=== PATIENT | female | born 1930 | race Caucasian/White ===

== ENCOUNTER 2017-03-26 11:27 | Emergency (ER) | payer MEDICARE, OTHER ==
[~2017-03-26] VITALS: Ht 165.1 cm; Wt 73.5 kg
[~2017-03-26 11:27] MED LIST: ASPIRIN EC81 MG PO; BISOPROLOL FUMAR5 MG PO; CALCIUM + VITA1 EACH PO; CHLORDIAZEPOXI1 EACH PO; GABAPENTIN100 MG PO; LEVOTHYROXINE112 MCG PO; METOPROLOL TART25 MG PO; PRILOSEC40 MG PO; SPIRONOLACTONE25 MG PO; TORSEMIDE10 MG PO; VITAMIN B-12100 MCG PO; VYTORIN 10-401 EACH PO; XARELTO10 MG PO
--- NOTE | 2017-03-26 12:22 | Diagnostic Imaging Report ---
PROCEDURE: A single AP view of the chest. COMPARISON: Chest radiograph 04/30/2015 INDICATIONS: FALL, WEAKNESS FINDINGS: Lines/tubes: Left chest wall AICD with leads overlying the right atrium and right ventricle. Lungs: The lungs are well inflated. Mild bibasilar atelectasis. There is no evidence of pneumonia or pulmonary edema. Pleura: There is no pleural effusion or pneumothorax. Heart and mediastinum: Tortuous aorta. Aortic calcifications. Otherwise, the heart and the mediastinum are unremarkable. Bones: No acute bony abnormality. Median sternotomy wires. IMPRESSION: No acute cardiopulmonary disease. Dictated by: Adarsh Zuniga M.D. on 03/26/2017 at 12:31 Electronically approved by: Adarsh Zuniga M.D. on 03/26/2017 at 12:31
--- NOTE | 2017-03-26 12:47 | Diagnostic Imaging Report ---
History: Trauma, fall, rule out bleed Comparison studies: Multiple prior head CTs, most recent of 04/22/2014. Technique: Axial images were obtained from the brain and cervical spine. Coronal and sagittal images reconstructed from the axial data. Intravenous contrast: None Findings: Head CT: Scalp: Small left parietal-occipital hematoma. Incidental small left frontal scalp lipoma. Bones: No fractures, blastic or lytic lesions. Previous bilateral frontal and left parietal kin holes. Extra-axial spaces: No masses. No fluid collections. Brain volume: Generalized volume loss with greater/moderate disproportionate volume loss in the bilateral frontal lobes. Ventricles: Moderate compensatory dilatation of the lateral ventricles. Normal size fourth ventricle. No hydrocephalus. Parenchyma: No mass, acute hemorrhage or acute cortical vascular insults. A few scattered and mildly confluent-periventricular hypodensities in the supratentorial white matter are nonspecific but most compatible with chronic small vessel ischemic changes. Sellar/suprasellar region: No abnormalities. Craniocervical junction: The foramen magnum is patent. No Chiari one malformation. Cervical spine CT: Fractures: None. Soft tissues: No gross abnormalities. Atlantoaxial articulation: Intact. Alignment: Mild cervical kyphosis centered at C4-C5 and minimal anterolisthesis of C3 on C4, C4 on C5 and C7 on T1 are most likely degenerative in etiology. Mild cervical curvature convex to the left. Cervicomedullary junction: No abnormalities. The foramen magnum is patent. Vertebrae: No infection or neoplasm. Degenerative changes: Multilevel disc degeneration (mild from C2 to C4, moderate at C4-C5, severe at C5-C6 and at C6-C7 and mild at C7-T1). Multilevel disc calcification. Mild canal stenosis at C5-C6 and at C6-C7 due to disc osteophyte complexes. Multilevel advanced facet arthrosis, worse/severe on the right from C2 to C5. Multilevel foraminal stenosis due to uncovertebral and facet arthrosis (severe right and mild left at C3-C4, moderate right and mild left at C4-C5, severe left and moderate right at C5-C6 and moderate bilaterally at C6-C7). Incidental findings: Scattered calcified cervical atherosclerosis including within the carotid bulbs. Calcified atherosclerosis and in the intradural intradural vertebral arteries. Bilateral lens replacements related to previous cataract surgery. Partially imaged median sternotomy wire and implanted left intracardiac device. IMPRESSION: Head CT: 1. Left parieto-occipital scalp hematoma without underlying fracture. 2. No acute intracranial abnormalities. Specifically, no acute hemorrhage. 3. No changes from the previous head CT of 04/22/2014. 4. Generalized volume loss with a bifrontal predominance. 5. Mild chronic microvascular ischemic changes. Cervical spine CT: 1. No cervical spine fracture or acute subluxations. 2. Multilevel degenerative changes as described. 3. Cannot exclude ligament, spinal cord and or vascular abnormalities on the basis of this examination. Signed by: Dr. Marlon Campos M.D. on 03/26/2017 12:44 PM
[2017-03-26 12:54] LABS: BASOPHILS # (AUTO) 0.1 (0.0-0.1); BASOPHILS % 0.9 % (0.0-1.0); EOSINOPHILS # (AUTO) 0.1 (0.0-0.4); EOSINOPHILS % 2.3 % (0.0-6.0); HEMATOCRIT 40.2 % (34.2-44.1); HEMOGLOBIN 12.8 g/dL (12.0-16.0); LYMPHOCYTES # (AUTO) 1.3 (1.0-3.2); LYMPHOCYTES % 23.7 % (18.0-39.1); MEAN CORPUSCULAR HEMOGLOBIN 28.8 pg (28-32); MEAN CORPUSCULAR HGB CONC 31.8 g/dL (31-35); MEAN CORPUSCULAR VOLUME 90.5 fL (81-99); MONOCYTES # (AUTO) 0.5 (0.2-0.8); MONOCYTES % 8.4 % (4.4-11.3); NEUTROPHILS # (AUTO) 3.6 (2.1-6.9); NEUTROPHILS % 64.5 % (38.7-80.0); PLATELET COUNT 164 x10e3/uL (140-360); RED BLOOD COUNT 4.44 x10e6/uL (3.6-5.1); RED CELL DISTRIBUTION WIDTH 13.9 % (11.7-14.4)
[2017-03-26 13:07] LABS: INR 1.8; PROTHROMBIN TIME 21.8 seconds (11.9-14.5)
[2017-03-26 13:08] LABS: PARTIAL THROMBOPLASTIN TIME 39.3 seconds (23.8-35.5)
[2017-03-26 13:17] LABS: ALBUMIN 3.7 g/dL (3.5-5.0); ANION GAP 11.4 mmol/L (8-16); CALCIUM 8.7 mg/dL (8.4-10.2); CREATININE, SERUM 1.04 mg/dL (0.57-1.11); POTASSIUM 4.4 mmol/L (3.5-5.1)
[2017-03-26 13:23] LABS: CREATINE KINASE MB 2.8 ng/mL (0.00-5.00); TROPONIN I 0.215 ng/mL (0-0.300)
[2017-03-26 14:02] LABS: BILIRUBIN,URINE NEGATIVE (NEGATIVE); KETONES,URINE NEGATIVE (NEGATIVE); LEUKOCYTE ESTERASE ,URINE 2+ (NEGATIVE); NITRITE,URINE NEGATIVE (NEGATIVE); PROTEIN,URINE DIPSTICK NEGATIVE (NEGATIVE); URINE UROBILINOGEN 0.2 mg/dL (0.2 - 1)
[2017-03-26 14:13] LABS: CLARITY,URINE SL CLOUDY (CLEAR); COLOR,URINE YELLOW (YELLOW)
[2017-03-26 14:37] LABS: BACTERIA,URINE RARE /HPF; EPITHELIAL CELLS,URINE FEW /LPF; WBC,URINE (MAN) 0-5 /HPF (0-5)
[2017-03-26 15:32] VITALS: BP 134/79
== END 2017-03-26 15:33 | disposition home or self-care (01) ==
LOC: ER 11:27
DX: S01.01XA Laceration without foreign body of scalp, initial encounter (principal); W18.12XA Fall from or off toilet with subsequent striking against object, initial encounter; Y93.89 Activity, other specified; Y92.002 Bathroom of unspecified non-institutional (private) residence as the place of occurrence of the external cause
CPT/HCPCS: 36415; 70450; 71045; 72125; 80053; 81001; 82550; 82553; 84484; 85025; 85610; 85730; 87086; 87186; 87400; 93005; 99283

== ENCOUNTER 2017-05-22 11:42 | Inpatient (IN) | payer MEDICARE ==
[~2017-05-22] VITALS: Ht 165.1 cm; Wt 82.8 kg
--- OUTSIDE RECORDS SUMMARY | 2017-05-22 11:45 | XMS REPORT ---
Author Author [facility] Address Unknown Phone Unavailable Care Team Providers Care Conference Planning Manager Name Role Phone HIRAL LONGORIA Unavailable Unavailable Problems This patient has no known problems. Allergies, Adverse Reactions, Alerts This patient has no known allergies or adverse reactions. Medications This patient has no known medications. Results Test Description Test Time Test Comments Text Results Atomic Results Result Comments CHEST SINGLE (PORTABLE) [address] [place], [place] [address] Patient Name: MEERA BOSWELL MR #: [id number] : 1930 Age/Sex: 86/F Req #: [id number] Adm Physician: Ordered by: SILAS JAUREGUI HOTEL OPERATION MANAGER Report #: [id number] Location: ER Room/Bed: Procedure: [id number] DX/CHEST SINGLE (PORTABLE) Exam Date: 03/26/17 Exam Time: 1140 REPORT STATUS: Signed PROCEDURE: A single AP view of the chest. COMPARISON: Chest radiograph 04/30/2015 INDICATIONS: FALL, WEAKNESS FINDINGS: Lines/tubes: Left chest wall AICD with leads overlying the right atrium and right ventricle. Lungs: The lungs are well inflated. Mild bibasilar atelectasis. There is no evidence of pneumonia or pulmonary edema. Pleura: There is no pleural effusion or pneumothorax. Heart and mediastinum: Tortuous aorta. Aortic calcifications. Otherwise, the heart and the mediastinum are unremarkable. Bones: No acute bony abnormality. Median sternotomy wires. IMPRESSION: No acute cardiopulmonary disease. Dictated by: Adarsh Su M.D. on 03/26/2017 at 12:31 Electronically approved by: Adarsh Su M.D. on 03/26/2017 at 12:31 Dictated By: ADARSH SU MD 1231 Transcribed By : AALIYAH on 03/26/17 1231 COPY TO: SILAS JAUREGUI HOTEL OPERATION MANAGER CT CERVICAL SPINE WO [facility] [address] [place] [address] Patient Name: MEERA BOSWELL MR #: [id number] : 1930 Age/Sex: 86/F Req #: [id number] Adm Physician: Ordered by: SILAS JAUREGUI HOTEL OPERATION MANAGER Report #: [id number] Location: ER Room/Bed: Procedure: [id number] CT/CT CERVICAL SPINE WO Exam Date: 03/26/17 Exam Time: 1145 REPORT STATUS: Signed History: Trauma, fall, rule out bleed Comparison studies: Multiple prior head CTs, most recent of 04/22/2014. Technique: Axial images were obtained from the brain and cervical spine. Coronal and sagittal images reconstructed from the axial data. Intravenous contrast: None Findings: Head CT: Scalp: Small left parietal-occipital hematoma. Incidental small left frontal scalp lipoma. Bones: No fractures, blastic or lytic lesions. Previous bilateral frontal and left parietal kin holes. Extra-axial spaces: No masses. No fluid collections. Brain volume: Generalized volume loss with greater/ moderate disproportionate volume loss in the bilateral frontal lobes. Ventricles: Moderate compensatory dilatation of the lateral ventricles. Normal size fourth ventricle. No hydrocephalus. Parenchyma: No mass, acute hemorrhage or acute cortical vascular insults. A few scattered and mildly confluent-periventricular hypodensities in the supratentorial white matter are nonspecific but most compatible with chronic small vessel ischemic changes. Sellar/suprasellar region: No abnormalities. Craniocervical junction: The foramen magnum is patent. No Chiari one malformation. Cervical spine CT: Fractures: None. Soft tissues: No gross abnormalities. Atlantoaxial articulation: Intact. Alignment: Mild cervical kyphosis centered at C4-C5 and minimal anterolisthesis of C3 on C4, C4 on C5 and C7 on T1 are most likely degenerative in etiology. Mild cervical curvature convex to the left. Cervicomedullary junction: No abnormalities. The foramen magnum is patent. Vertebrae: No infection or neoplasm. Degenerative changes: Multilevel disc degeneration (mild from C2 to C4, moderate at C4-C5, severe at C5-C6 and at C6-C7 and mild at C7-T1). Multilevel disc calcification. Mild canal stenosis at C5-C6 and at C6-C7 due to disc osteophyte complexes. Multilevel advanced facet arthrosis, worse/ severe on the right from C2 to C5. Multilevel foraminal stenosis due to uncovertebral and facet arthrosis (severe right and mild left at C3-C4, moderate right and mild left at C4-C5, severe left and moderate right at C5- C6 and moderate bilaterally at C6-C7). Incidental findings: Scattered calcified cervical atherosclerosis including within the carotid bulbs. Calcified atherosclerosis and in the intradural intradural vertebral arteries. Bilateral lens replacements related to previous cataract surgery. Partially imaged median sternotomy wire and implanted left intracardiac device. IMPRESSION: Head CT: 1. Left parieto-occipital scalp hematoma without underlying fracture. 2. No acute intracranial abnormalities. Specifically, no acute hemorrhage. 3. No changes from the previous head CT of 04/22/2014. 4. Generalized volume loss with a bifrontal predominance. 5. Mild chronic microvascular ischemic changes. Cervical spine CT: 1. No cervical spine fracture or acute subluxations. 2. Multilevel degenerative changes as described. 3. Cannot exclude ligament, spinal cord and or vascular abnormalities on the basis of this examination. Signed by: Dr. Yang Campos M.D. on 03/26/2017 12:44 PM Dictated By: YANG CAMPOS MD 1244 Transcribed By: JOHNSON on 03/26/17 1244 COPY TO: SILAS JAUREGUI HOTEL OPERATION MANAGER CT BRAIN WO [place] [address] Patient Name: MEERA BOSWELL MR #: [id number] : 1930 Age/Sex: 86/F Req #: [id number] Adm Physician: Ordered by: SILAS JAUREGUI HOTEL OPERATION MANAGER Report #: [id number] Location: ER Room/Bed: Procedure: [id number] CT/CT BRAIN WO Exam Date: 03/26/17 Exam Time: 1145 REPORT STATUS: Signed History: Trauma, fall, rule out bleed Comparison studies: Multiple prior head CTs, most recent of 2014. Technique: Axial images were obtained from the brain and cervical spine. Coronal and sagittal images reconstructed from the axial data. Intravenous contrast: None Findings: Head CT: Scalp: Small left parietal-occipital hematoma. Incidental small left frontal scalp lipoma. Bones: No fractures, blastic or lytic lesions. Previous bilateral frontal and left parietal kin holes. Extra-axial spaces: No masses. No fluid collections. Brain volume: Generalized volume loss with greater/moderate disproportionate volume loss in the bilateral frontal lobes. Ventricles: Moderate compensatory dilatation of the lateral ventricles. Normal size fourth ventricle. No hydrocephalus. Parenchyma: No mass, acute hemorrhage or acute cortical vascular insults. A few scattered and mildly confluent-periventricular hypodensities in the supratentorial white matter are nonspecific but most compatible with chronic small vessel ischemic changes. Sellar/suprasellar region: No abnormalities. Craniocervical junction: The foramen magnum is patent. No Chiari one malformation. Cervical spine CT: Fractures: None. Soft tissues: No gross abnormalities. Atlantoaxial articulation: Intact. Alignment: Mild cervical kyphosis centered at C4-C5 and minimal anterolisthesis of C3 on C4, C4 on C5 and C7 on T1 are most likely degenerative in etiology. Mild cervical curvature convex to the left. Cervicomedullary junction: No abnormalities. The foramen magnum is patent. Vertebrae: No infection or neoplasm. Degenerative changes: Multilevel disc degeneration (mild from C2 to C4, moderate at C4-C5, severe at C5-C6 and at C6-C7 and mild at C7-T1). Multilevel disc calcification. Mild canal stenosis at C5-C6 and at C6-C7 due to disc osteophyte complexes. Multilevel advanced facet arthrosis, worse/ severe on the right from C2 to C5. Multilevel foraminal stenosis due to uncovertebral and facet arthrosis (severe right and mild left at C3-C4, moderate right and mild left at C4-C5, severe left and moderate right at C5- C6 and moderate bilaterally at C6-C7). Incidental findings: Scattered calcified cervical atherosclerosis including within the carotid bulbs. Calcified atherosclerosis and in the intradural intradural vertebral arteries. Bilateral lens replacements related to previous cataract surgery. Partially imaged median sternotomy wire and implanted left intracardiac device. IMPRESSION: Head CT: 1. Left parieto-occipital scalp hematoma without underlying fracture. 2. No acute intracranial abnormalities. Specifically, no acute hemorrhage. 3. No changes from the previous head CT of 04/22/2014. 4. Generalized volume loss with a bifrontal predominance. 5. Mild chronic microvascular ischemic changes. Cervical spine CT: 1. No cervical spine fracture or acute subluxations. 2. Multilevel degenerative changes as described. 3. Cannot exclude ligament, spinal cord and or vascular abnormalities on the basis of this examination. Signed by: Dr. Yang Campos M.D. on 03/26/2017 12:44 PM Dictated By: YANG CAMPOS MD 1244 Transcribed By: JOHNSON on 03/26/17 1244 COPY TO: SILAS JAUREGUI NP
--- OUTSIDE RECORDS SUMMARY | 2017-05-22 11:45 | XMS REPORT | Continuity of Care Document ---
Author Author [facility] Organization [facility] Address [address] [place] [address] Phone Unavailable Care Team Providers Care Vp Ancillary Name Role Phone DILCIA DOAN MD PCP Insurance Providers Guarantor Meera Boswell Address [address] [place] [address] [facility] Policy Number [id number] Subscriber's Name Meera Boswell Relationship 18 Self / Same As Patient Group Number [id number] Group Name RETIRED Effective Date 14 Payer Medicare A & B Policy Number [id number] Subscriber's Name Meera Boswell E Relationship 18 Self / Same As Patient Group Name RETIRED Effective Date 94 Advance Directives Directive Response Recorded Date/Time Does the patient have an advance directive? Yes 02/11/12 3:00pm If yes, is advance directive on file with [facility]? No 02/11/12 3:00pm If not on file with [facility] will patient provide a copy? Yes 02/11/12 3:00pm Do you have a Directive to Physician? No 03/26/17 12:49pm Do you have a Medical Power of Voting Machine Repairer? No 03/26/17 12:49pm Do you have an out of hospital Do Not Resuscitate Order? No 03/26/17 12:49pm Do you have any special needs we should be aware of? No 03/26/17 12:49pm Do you have a support person here with you today? Yes 03/26/17 12:49pm Did patient receive Notice of Privacy Practices? Yes 03/26/17 12:49pm Did patient receive patient rights and responsibilities? Yes 03/26/17 12:49pm Chief Complaint and Reason for Visit Chief Complaint Head/Face Trauma Reason for Visit Laceration [id number] Problems Medical Problem Onset Date Status Head injury Unknown Acute Laceration Unknown Acute Medications Current Home Medications Medication Dose Units Route Directions Days Qty Instructions Start Date Aspirin (Aspirin Ec) 81 Mg Tablet. 81 Mg Oral Daily Bisoprolol Fumarate 5 Mg Tablet 5 Mg Oral Daily Calcium Carbonate/Vitamin D3 (Calcium + Vitamin D Tablet) 1 Each Tablet 500 Mg Oral Daily Chlordiazepoxide/Clidinium Br (Chlordiazepoxide-Clidinium Cap) 1 Each Capsule Mg Oral Twice A Day Cyanocobalamin (Vitamin B-12) (Vitamin B-12) 100 Mcg Tablet 100 Mcg Oral Daily Ezetimibe/Simvastatin (Vytorin 10-40 Mg Tablet) 1 Each Tablet 10 - 40 Mg Oral Bedtime Gabapentin 100 Mg Capsule 100 Mg Oral Three Times A Day Levothyroxine Sodium 112 Mcg Tablet 112 Mcg Oral Daily Metoprolol Tartrate 25 Mg Tablet 12.5 Mg Oral Daily Omeprazole (Prilosec) 40 Mg Capsule. 40 Mg Oral Twice A Day Rivaroxaban (Xarelto) 10 Mg Tablet 10 Mg Oral Daily Spironolactone 25 Mg Tablet 25 Mg Oral Daily 60 Tab Torsemide 10 Mg Tablet 20 Mg Oral Daily Social History Social History Problem Response Recorded Date/Time Onset Date Status Hx Psychiatric Problems No 02/11/2012 3:00pm Not Applicable Not Applicable Hx Alcohol Use No 02/11/2012 3:00pm Not Applicable Not Applicable Hx Physical Abuse No 02/11/2012 3:00pm Not Applicable Not Applicable Smoking Status Start Date Stop Date Never Smoker Hospital Discharge Instructions No hospital discharge instruction information available. Plan of Care Discharge Date 03/26/17 3:33pm Disposition HOME, SELF-CARE Condition at Discharge Stable Instructions/Education Provided Concussion/Head Injury - Adult Scalp Laceration Forms Provided Work/School Excuse Prescriptions See Medication Section Referrals DILCIA DOAN MD Address: [address] [place] [address] BILL MAGALLON MD Address: [address] [place] [address] Additional Instructions/Education 1. follow up with your doctor in 1-2 days without fail 2. follow up with neurologist in 1-2 days without fail 3. tylenol and motrin as needed for pain 4. neosporin ointment to wound twice a day 5. return to ed as needed Functional Status No functional status information available. Allergies, Adverse Reactions, Alerts Allergen Type Severity Reaction Status Last Updated No Known Drug Allergies Allergy Unknown Active 10/24/08 Immunizations No immunization information available. Vital Signs Acute Vital Signs Vital Response Date/Time Temperature (Fahrenheit) 97.7 degrees F (97.6 - 99.5) 03/26/2017 3:32pm Pulse Pulse Rate (adult) 77 bpm (60 - 90) 03/26/2017 3:32pm Respiratory Rate 16 bpm (12 - 24) 03/26/2017 3:32pm Blood Pressure 134/79 mm Hg 03/26/2017 3:32pm Height 5 ft 5 in 03/26/2017 11:30am Weight 162 lb 03/26/2017 11:30am Body Mass Index 27.0 kg/m^2 03/26/2017 11:30am Results Laboratory Results Test Name Result Units Flags Reference Collection Date/Time Result Date/ Time Comments White Blood Count 5.58 x10e3/uL 4.8-10.8 03/26/2017 11:47am 03/26/2017 12:56pm Red Blood Count 4.44 x10e6/uL 3.6-5.1 03/26/2017 11:47am 03/26/2017 12: 56pm Hemoglobin 12.8 g/dL 12.0-16.0 03/26/2017 11:47am 03/26/2017 12:56pm Hematocrit 40.2 % 34.2-44.1 03/26/2017 11:47am 03/26/2017 12:56pm Mean Corpuscular Volume 90.5 fL 81-99 03/26/2017 11:4703/26/2017 12: 56pm Mean Corpuscular Hemoglobin 28.8 pg 28-32 03/26/2017 11:2017 12:56pm Mean Corpuscular Hemoglobin Concent 31.8 g/dL 31-35 03/26/2017 11:03/26/2017 12:56pm Red Cell Distribution Width 13.9 % 11.7-14.4 03/26/2017 11:2017 12:56pm Platelet Count 164 x10e3/uL 140-360 03/26/2017 11:03/26/2017 12: 56pm Neutrophils (%) (Auto) 64.5 % 38.7-80.0 03/26/2017 11:03/26/2017 12:56pm Lymphocytes (%) (Auto) 23.7 % 18.0-39.1 03/26/2017 11:03/26/2017 12:56pm Monocytes (%) (Auto) 8.4 % 4.4-11.3 03/26/2017 11:03/26/2017 12: 56pm Eosinophils (%) (Auto) 2.3 % 0.0-6.0 03/26/2017 11:03/26/2017 12: 56pm Basophils (%) (Auto) 0.9 % 0.0-1.0 03/26/2017 11:03/26/2017 12: 56pm IM GRANULOCYTES % 0.2 % 0.0-1.0 03/26/2017 11:03/26/2017 12:56pm Neutrophils # (Auto) 3.6 2.1-6.9 03/26/2017 11:03/26/2017 12: 56pm Lymphocytes # (Auto) 1.3 1.0-3.2 03/26/2017 11:03/26/2017 12: 56pm Monocytes # (Auto) 0.5 0.2-0.8 03/26/2017 11:03/26/2017 12:56pm Eosinophils # (Auto) 0.1 0.0-0.4 03/26/2017 11:4703/26/2017 12: 56pm Basophils # (Auto) 0.1 0.0-0.1 03/26/2017 11:47am 03/26/2017 12:56pm Absolute Immature Granulocyte (auto 0.01 x10e3/uL 0-0.1 03/26/2017 11: 47am 03/26/2017 12:56pm Prothrombin Time 21.8 seconds H 11.9-14.5 03/26/2017 11:47am 03/26/2017 1:27pm Prothromb Time International Ratio 1.80 03/26/2017 11:47am 2017 1:27pm Oral Anticoagulant Therapy INR Values: 1. Low Intensity Therapy 1.5 - 2.0 2. Moderate Intensity Therapy 2.0 - 3.0 3. High Intensity Therapy(1) 2.5 - 3.5 4. High Intensity Therapy(2) 3.0 - 4.0 5. Panic Value INR > 5.0 Activated Partial Thromboplast Time 39.3 seconds H 23.8-35.5 03/26/2017 11:47am 03/26/2017 1:27pm Urine Color YELLOW YELLOW 03/26/2017 12:40pm 03/26/2017 2:14pm Urine Clarity SL CLOUDY CLEAR 03/26/2017 12:40pm 03/26/2017 2:14pm Urine Specific [place] 1.015 1.010-1.025 03/26/2017 12:40pm 2017 2:14pm Urine pH 5 5 - 7 03/26/2017 12:40pm 03/26/2017 2:14pm Urine Leukocyte Esterase 2+ H NEGATIVE 03/26/2017 12:40pm 03/26/2017 2 :14pm Urine Nitrite NEGATIVE NEGATIVE 03/26/2017 12:40pm 03/26/2017 2:14pm Urine Protein NEGATIVE NEGATIVE 03/26/2017 12:40pm 03/26/2017 2:14pm Urine Glucose (UA) NEGATIVE NEGATIVE 03/26/2017 12:40pm 03/26/2017 2: 14pm Urine Ketones NEGATIVE NEGATIVE 03/26/2017 12:40pm 03/26/2017 2:14pm Urine Urobilinogen 0.2 mg/dL 0.2 - 1 03/26/2017 12:40pm 03/26/2017 2: 14pm Urine Bilirubin NEGATIVE NEGATIVE 03/26/2017 12:40pm 03/26/2017 2: 14pm Urine Blood 1+ H NEGATIVE 03/26/2017 12:40pm 03/26/2017 2:14pm Urine WBC 0-5 /HPF 0-5 03/26/2017 12:40pm 03/26/2017 2:37pm Urine RBC 6-10 /HPF H 0-5 03/26/2017 12:40pm 03/26/2017 2:37pm Urine Bacteria RARE /HPF NONE 03/26/2017 12:40pm 03/26/2017 2:37pm Urine Epithelial Cells FEW /LPF NONE 03/26/2017 12:40pm 03/26/2017 2: 37pm Sodium Level 142 mmol/L 136-145 03/26/2017 11:47am 03/26/2017 1:21pm Potassium Level 4.4 mmol/L 3.5-5.1 03/26/2017 11:47am 03/26/2017 1: 21pm Chloride Level 107 mmol/L 98-107 03/26/2017 11:47am 03/26/2017 1:21pm Influenza Virus Types A,B Antigen NEGATIVE NEGATIVE 03/26/2017 11: 47am 03/26/2017 1:14pm Carbon Dioxide Level 28 mmol/L 22-29 03/26/2017 11:47am 03/26/2017 1: 21pm Anion Gap 11.4 mmol/L 8-16 03/26/2017 11:47am 03/26/2017 1:21pm Blood Urea Nitrogen 22 mg/dL 7-26 03/26/2017 11:47am 03/26/2017 1:21pm Creatinine 1.04 mg/dL 0.57-1.11 03/26/2017 11:47am 03/26/2017 1:21pm BUN/Creatinine Ratio 21 6-25 03/26/2017 11:47am 03/26/2017 1:21pm Estimat Glomerular Filtration Rate 50 ML/MIN L 60- 03/26/2017 11:47am 1:21pm Ranges were taken from the National Kidney Disease Education Program and the National Kid[employer] Foundation literature. Reference ranges: 60 or greater: Normal 16-59 (for 3 consecutive months): Chronic kidney disease 15 or less: Kidney failure Glucose Level 112 mg/dL 74-118 03/26/2017 11:47am 03/26/2017 1:21pm Calcium Level 8.7 mg/dL 8.4-10.2 03/26/2017 11:47am 03/26/2017 1:21pm Total Bilirubin 0.5 mg/dL 0.2-1.2 03/26/2017 11:47am 03/26/2017 1:21pm Aspartate Amino Transf (AST/SGOT) 22 IU/L 5-34 03/26/2017 11:47am 03/26 1:21pm Alanine Aminotransferase (ALT/SGPT) 14 IU/L 0-55 03/26/2017 11:47am 1:21pm Total Protein 7.4 g/dL 6.5-8.1 03/26/2017 11:47am 03/26/2017 1:21pm Albumin 3.7 g/dL 3.5-5.0 03/26/2017 11:47am 03/26/2017 1:21pm Globulin 3.7 g/dL H 2.3-3.5 03/26/2017 11:47am 03/26/2017 1:21pm Albumin/Globulin Ratio 1.0 0.8-2.0 03/26/2017 11:47am 03/26/2017 1: 21pm Alkaline Phosphatase 63 IU/L 40-150 03/26/2017 11:47am 03/26/2017 1: 21pm Creatine Kinase 66 IU/L 29-168 03/26/2017 11:47am 03/26/2017 1:21pm Creatine Kinase MB 2.80 ng/mL 0.00-5.00 03/26/2017 11:47am 03/26/2017 1 :25pm Troponin I 0.215 ng/mL 0-0.300 03/26/2017 11:47am 03/26/2017 1:25pm Procedures Procedure Status Date Provider(s) Computed tomography of brain without radiopaque contrast Active 03/26/17 SILAS JAUREGUI NEUROSURGERY PHYSICIAN Computed tomography of cervical spine without contrast Active 03/26/17 SILAS JAUREGUI NEUROSURGERY PHYSICIAN Encounters Encounter Location Arrival/Admit Date Discharge/Depart Date Attending Provider Departed Emergency Room [facility] 03/26/17 11:27am 03/26 3:33pm HIRAL LONGORIA MD Recent Diagnosis
[2017-05-22 12:30] LABS: BASOPHILS # (AUTO) 0.1 (0.0-0.1); BASOPHILS % 0.6 % (0.0-1.0); EOSINOPHILS # (AUTO) 0.1 (0.0-0.4); EOSINOPHILS % 0.8 % (0.0-6.0); HEMATOCRIT 41.8 % (34.2-44.1); HEMOGLOBIN 13.4 g/dL (12.0-16.0); LYMPHOCYTES # (AUTO) 1.3 (1.0-3.2); LYMPHOCYTES % 16.1 % (18.0-39.1); MEAN CORPUSCULAR HEMOGLOBIN 29.3 pg (28-32); MEAN CORPUSCULAR HGB CONC 32.1 g/dL (31-35); MEAN CORPUSCULAR VOLUME 91.3 fL (81-99); MONOCYTES # (AUTO) 0.7 (0.2-0.8); MONOCYTES % 8.2 % (4.4-11.3); NEUTROPHILS # (AUTO) 6.2 (2.1-6.9); NEUTROPHILS % 73.8 % (38.7-80.0); PLATELET COUNT 173 x10e3/uL (140-360); RED BLOOD COUNT 4.58 x10e6/uL (3.6-5.1); RED CELL DISTRIBUTION WIDTH 15.9 % (11.7-14.4)
[2017-05-22 12:35] LABS: INR 1.51; PROTHROMBIN TIME 17.1 seconds (11.9-14.5)
[2017-05-22 12:44] LABS: ALBUMIN 3.7 g/dL (3.5-5.0); ALBUMIN/GLOBULIN RATIO 1.2 (0.8-2.0); ANION GAP 14.3 mmol/L (8-16); CALCIUM 9.1 mg/dL (8.4-10.2); CREATININE, SERUM 1.77 mg/dL (0.57-1.11); POTASSIUM 5.3 mmol/L (3.5-5.1)
[2017-05-22 12:51] LABS: CREATINE KINASE MB 2.2 ng/mL (0-5.0)
--- NOTE | 2017-05-22 12:54 | Diagnostic Imaging Report ---
PROCEDURE: A single AP view of the chest. COMPARISON: None. INDICATIONS: SHORTNESS OF BREATH FINDINGS: Lines/tubes: Left-sided AICD with 2 leads. Median sternotomy wires. Lungs: The lungs are well inflated. Mild bibasilar atelectasis. Pleura: There is no pleural effusion or pneumothorax. Heart and mediastinum: The heart and the mediastinum are unremarkable. Bones: No acute bony abnormality. IMPRESSION: Mild bibasilar atelectasis. Dictated by: Daljit Daly M.D. on 05/22/2017 at 12:54 Electronically approved by: Daljit Daly M.D. on 05/22/2017 at 12:54
[2017-05-22] MEDS ORDERED: FUROSEMIDE INJ 10 MG/ML 2 ML VIAL IV STA (13:18)
[2017-05-22] MEDS ORDERED: SODIUM CHLORIDE FLUSH 10 ML SYR INJ PRN (13:30)
[2017-05-22 14:00] LABS: BILIRUBIN,URINE NEGATIVE (NEGATIVE); KETONES,URINE NEGATIVE (NEGATIVE); LEUKOCYTE ESTERASE ,URINE 1+ (NEGATIVE); NITRITE,URINE NEGATIVE (NEGATIVE); URINE UROBILINOGEN 0.2 mg/dL (0.2 - 1)
[2017-05-22 14:02] LABS: CLARITY,URINE SL CLOUDY (CLEAR); COLOR,URINE YELLOW (YELLOW); PROTEIN,URINE DIPSTICK 1+ (NEGATIVE)
[2017-05-22 14:15] LABS: BACTERIA,URINE FEW /HPF; EPITHELIAL CELLS,URINE FEW /LPF
[2017-05-22 23:01] LABS: CREATINE KINASE MB 1.9 ng/mL (0-5.0)
[2017-05-23] VITALS (7 sets, daily range): BP systolic 88–136; BP diastolic 59–71
[2017-05-23 07:21] LABS: CREATINE KINASE MB 1.8 ng/mL (0-5.0)
[2017-05-23] MEDS ORDERED: FUROSEMIDE INJ 10 MG/ML 4 ML VIAL IV ONE (10:45)
--- NOTE | 2017-05-23 13:42 | Consultation ---
DATE OF CONSULTATION: May 23, 2017 CARDIOLOGY CONSULTATION REQUESTING PHYSICIAN: Kyle Garcia MD REASON FOR CONSULTATION: Congestive heart failure. HISTORY OF PRESENT ILLNESS: This is an 86-year-old woman with a history of coronary artery disease status post CABG and PCI, chronic systolic heart failure status post ICD, hypertension, hyperlipidemia, reported history of ventricular tachycardia, hypothyroidism, and history of PE/DVT who presents with complaints of worsening shortness of breath. The patient reports she has been short of breath with worsening lower extremity swelling, orthopnea and PND for the last few weeks. She denies any chest pain or palpitations. She was admitted to [facility] 2 weeks ago with complaints of shortness of breath. She states she was diagnosed with a UTI and discharged home. However, after discharge, she complained of continued shortness of breath and weakness. Her shortness of breath has been worse in the last 3 days for which she presents to [facility] for further care. REVIEW OF SYSTEMS: Negative, except as per HPI. PAST MEDICAL HISTORY 1. Coronary artery disease, status post CABG and PCI. 2. Chronic systolic heart failure, status post ICD. 3. Reported history of ventricular tachycardia. 4. Hypertension. 5. Hyperlipidemia. 6. Hypothyroidism. 7. History of DVT and PE. PAST SURGICAL HISTORY: CABG. ALLERGIES: PLEASE SEE EMR. MEDICATIONS: Please see medication list. SOCIAL HISTORY: No tobacco, alcohol, or drugs. FAMILY HISTORY: Noncontributory to the current admission. PHYSICAL EXAMINATION VITAL SIGNS: Temperature 96.2 degrees, pulse 64, respiratory rate 18, blood pressure 88/59, oxygen saturation 97% on BiPAP. GENERAL: Well-developed, well-nourished woman in no acute distress. HEENT: Normocephalic and atraumatic. Using BiPAP. NECK: Supple. No thyromegaly or cervical lymphadenopathy. No carotid bruit. LUNGS: Diminished breath sounds. No wheezes or crackles. CARDIOVASCULAR: Normal rate, regular rhythm. No murmur. Normal S1 and S2. ABDOMEN: Soft. Nontender. EXTREMITIES: 2+ pitting edema of bilateral lower extremities. NEURO: Nonfocal exam. LABS: WBC 8.33, hemoglobin 13.4, hematocrit 41.8, platelets 173. Sodium 139, potassium 5.3, chloride 108, CO2 22, BUN 36, creatinine 1.77. BNP 770. Troponin 0.011. CHEST X-RAY: Mild bibasilar atelectasis. EKG: Atrial flutter with demand ventricular pacing. Left anterior fascicular block. T-wave abnormalities, consider lateral ischemia. IMPRESSION 1. Bzrnw-wm-vlpsmcc systolic heart failure. 2. Acute kidney injury. 3. Hyperkalemia. 4. Coronary artery disease, status post coronary artery bypass graft. 5. Hypertension. 6. Hyperlipidemia. 7. Reported history of ventricular tachycardia. 8. History of pulmonary embolism/deep venous thrombosis. 9. Hypothyroidism. 10. Atrial flutter. RECOMMENDATIONS: Start scheduled furosemide. Continue home cardiac medications. Hold Spironolactone given hyperkalemia and DELLA. Ordered echocardiogram. We will have the patient's ICD interrogated. She states it is a [employer] device. Monitor the patient on telemetry. Thank you for this consult. We will continue to follow. Job#: [id number] JOHN DÍAZ
[2017-05-23] MEDS: FUROSEMIDE INJ 10 MG/ML 4 ML VIAL IV SCH (18:40)
[2017-05-23] MEDS: SIMVASTATIN 40 MG TAB PO SCH (20:02)
[2017-05-24] VITALS: BP 111/59
[2017-05-24 07:56] VITALS: BP 164/78
[2017-05-24] MEDS: FUROSEMIDE INJ 10 MG/ML 4 ML VIAL IV SCH ×2 (08:26→16:14)
[2017-05-24] MEDS: BISOPROLOL FUMARATE 10 MG TAB PO SCH (08:27)
[2017-05-24] MEDS: EZETIMIBE 10 MG TAB PO SCH (08:27)
[2017-05-24] MEDS: ASPIRIN 81 MG ENTERIC COATED PO SCH (08:27)
[2017-05-24] MEDS ORDERED: SPIRONOLACTONE 25 MG TAB PO SCH (09:00)
[2017-05-24] MEDS ORDERED: MUCINEX D ER T1 EAC1 PO (10:39)
[2017-05-24] MEDS ORDERED: GENERLAC10 GM/15 M PO (10:39)
[2017-05-24] MEDS ORDERED: XARELTO15 MG PO (10:39)
[2017-05-24] MEDS ORDERED: IPRATROPIU0.2 MG/1 M (10:39)
[2017-05-24] MEDS ORDERED: BYSTOLIC10 MG PO (10:39)
[2017-05-24] MEDS ORDERED: PROVENTIL HFA6.7 GM (10:39)
[2017-05-24] MEDS ORDERED: COLACE100 MG PO (10:39)
[2017-05-24] MEDS ORDERED: BENZONATATE100 MG PO (10:39)
[2017-05-24] MEDS ORDERED: LEVOTHYROXINE75 MCG PO (10:39)
[2017-05-24] MEDS ORDERED: GABAPENTIN300 MG PO (10:56)
[2017-05-24] MEDS ORDERED: VITAMIN C1000 MG PO (10:56)
[2017-05-24] MEDS ORDERED: AMIODARONE HCL200 MG PO (10:56)
[2017-05-24] MEDS ORDERED: RANITIDINE HCL300 MG PO (10:56)
[2017-05-24] MEDS ORDERED: HYDROXYZINE HCL25 MG PO (10:56)
[2017-05-24] MEDS ORDERED: VITAMIN B-121000 MCG PO (10:56)
[2017-05-24] MEDS ORDERED: LISINOPRIL2.5 MG PO (10:56)
[2017-05-24] MEDS ORDERED: POTASSIUM CHLO20 ME1 PO (10:56)
[2017-05-24 11:49] VITALS: BP 113/59
[2017-05-24 12:08] VITALS: BP 113/59
--- NOTE | 2017-05-24 13:41 | Progress Note ---
DATE: May 23, 2017 CARDIOLOGY PROGRESS NOTE SUBJECTIVE: Frail. Denies chest pain. Improved shortness of breath. No other complaints. Echocardiogram reviewed. Severe permanent ventricular systolic function with regional wall motion abnormalities. Please see separate report. OBJECTIVE VITAL SIGNS: Temperature 97.8, heart rate 60, respiratory rate 20, blood pressure 113/59, O2 sat 100% on 3 liters per minute nasal cannula. GENERAL: In no acute distress, alert and oriented x3. NECK: No JVD or carotid bruits. CHEST: Clear to auscultation bilaterally. CARDIOVASCULAR: Regular rate and rhythm. Normal S1 and S2. Pacemaker pocket site looks okay. ABDOMEN: Soft. EXTREMITIES: Trace edema. CARDIOLOGY MEDICATIONS: 10 mg daily, aspirin 81 mg daily, 5 mg daily, furosemide 40 mg IV b.i.d., simvastatin 40 mg nightly, Xarelto 15 mg daily, , Spironolactone discontinued yesterday. STUDIES: White blood cells 8.3, hemoglobin 13.4, platelets 173,000 on 05/22. Creatinine was 1.77 on 05/22. No additional creatinine since then. Potassium was 5.3 on 05/22. Trending enzymes are negative. BNP turned out to be 681, most recent. TELEMETRY: Paced rhythm, underlying atrial fibrillation. ASSESSMENT: 1. Acute on chronic systolic heart failure. 2. Acute kidney injury. 3. Hyperkalemia. 4. Coronary artery disease status post aortocoronary bypass. 5. Hypertension. 6. Dyslipidemia. 7. History of ventricular tachycardia. 8. Pulmonary embolism and deep venous thrombosis. 9. Atrial fibrillation/flutter. 10. Hypothyroidism. 11. Frailty and deconditioning. RECOMMENDATIONS: Improving on diuretics. Advise on close monitoring of renal function as well as electrolytes. Echocardiogram reviewed. Please see separate report. Device interrogated. Underlying atrial fibrillation. Continue current medical therapy and consider physical therapy and occupational therapy while inhouse. Job#: [id number]
[2017-05-24] MEDS ORDERED: ALBUTEROL/IPRATROPIUM 3 ML NEB NEB PRN (15:00)
[2017-05-24] MEDS: RIVAROXABAN 15 MG TABLET PO SCH (16:14)
[2017-05-24 20:00] VITALS: BP 110/59
[2017-05-24] MEDS: SIMVASTATIN 40 MG TAB PO SCH (21:33)
[2017-05-25] VITALS (7 sets, daily range): BP systolic 99–127; BP diastolic 55–64
[2017-05-25 07:52] LABS: ANION GAP 12.5 mmol/L (8-16); CALCIUM 8.7 mg/dL (8.4-10.2); CREATININE, SERUM 1.17 mg/dL (0.57-1.11); MAGNESIUM 1.7 MG/DL (1.3-2.1); POTASSIUM 3.5 mmol/L (3.5-5.1)
[2017-05-25] MEDS: BISOPROLOL FUMARATE 10 MG TAB PO SCH (08:20)
[2017-05-25] MEDS: ASPIRIN 81 MG ENTERIC COATED PO SCH (08:26)
[2017-05-25] MEDS: FUROSEMIDE INJ 10 MG/ML 4 ML VIAL IV SCH ×2 (08:26→17:12)
[2017-05-25] MEDS: EZETIMIBE 10 MG TAB PO SCH (08:26)
[2017-05-25] MEDS ORDERED: LACTULOSE SYRUP 20 GM/30 ML UDC PO PRN (13:45)
--- NOTE | 2017-05-25 14:10 | Progress Note ---
DATE: INTERNAL MEDICINE PROGRESS NOTE SUBJECTIVE: Patient is doing well. No significant complaints except for constipation. No shortness of breath. PHYSICAL EXAM VITAL SIGNS: Blood pressure is 116/64, temperature 97.1, heart rate 56 per minute, respiratory rate is 18 per minute, and oxygen saturation is 97%. HEART: Irregularly irregular heart rate. Normal S1 and S2 sounds. LUNGS: Clear bilaterally. ABDOMEN: Soft. EXTREMITIES: No evidence of cyanosis or hematoma. LABORATORY DATA: On the blood work, we have BMP with a sodium 141, potassium 3.5, chloride 102, CO2 30, BUN 37, creatinine 1.17, and glucose 100. CBC, white blood count 8.33, hemoglobin 13.4, hematocrit 41.8, and platelet count 173,000. PT 17.1 and INR 1.51. AST 49, ALT 114, total bilirubin 0.4, and alkaline phosphatase 64. FINAL IMPRESSION 1. Vagca-zq-cjunbfd systolic congestive heart failure, which is slowly resolving. 2. Zvzlq-oz-ryjiqgq renal failure stage 3. 3. History of asthma. 4. Constipation. 5. Chronic atrial fibrillation. PLAN OF TREATMENT: Continue albuterol and Atrovent q.4 hours as needed for shortness of breath. Continue with Bystolic 5 mg daily, simvastatin 40 mg daily, aspirin 81 mg daily, Xarelto 15 mg daily, furosemide 40 mg IV twice a day, Ambien 5 mg at night p.r.n. for sleep, and Zetia 10 mg daily. Patient's family is requesting to go to an inpatient rehab facility; they have chosen [facility], so hopefully if okay with Dr. Garcia, transfer can be done sometime next week. Job#: [id number] HOLLY
--- NOTE | 2017-05-25 14:22 | Progress Note ---
DATE: May 25, 2017 CARDIOLOGY PROGRESS NOTE SUBJECTIVE: Remains deconditioned and frail. No chest pain or shortness of breath today, however. OBJECTIVE VITAL SIGNS: Temperature 97.1, heart rate 56, respiratory rate 18, blood pressure 116/64, and O2 sat 97% on nasal cannula. GENERAL: No acute distress, alert. NECK: No JVD. CHEST: Clear to auscultation. CARDIOVASCULAR: Regular rate and rhythm. Normal S1 and S2. ABDOMEN: Soft. EXTREMITIES: No edema. CARDIOVASCULAR MEDICATIONS: Zetia 10 mg daily, aspirin 81 mg daily, furosemide 40 mg b.i.d. IV, Xarelto 15 mg daily, bisoprolol 5 mg daily. LABORATORY STUDIES: Sodium 141, potassium 3.5, chloride 102, bicarbonate 30, BUN 37, creatinine 1.1, glucose 100, magnesium 1.7, and calcium 8.7. TELEMETRY: Paced rhythm. ASSESSMENT 1. Nkylo-qx-iolxpjy systolic heart failure. 2. Acute kidney injury. 3. Hyperkalemia, resolved. 4. Coronary artery disease, status post aortocoronary bypass. 5. Hypertension and dyslipidemia. 6. History of ventricular tachycardia. 7. Pulmonary embolism and deep venous thrombosis. 8. Atrial fibrillation and flutter. 9. Hypothyroidism. 10. Frailty and deconditioning. RECOMMENDATIONS 1. Continue current cardiovascular medications. 2. Monitor renal function and replete electrolytes as needed. 3. Severe impairment in ventricular systolic function, at a later date consider coronary assessment. 4. Anticoagulation for history of AFib and flutter and PE/DVT history advised. Job#: [id number] HOLLY
[2017-05-25] MEDS: DOCUSATE SODIUM 100 MG CAP PO SCH (17:12)
[2017-05-25] MEDS: RIVAROXABAN 15 MG TABLET PO SCH (17:12)
[2017-05-25] MEDS: SIMVASTATIN 40 MG TAB PO SCH (21:01)
[2017-05-26] VITALS (7 sets, daily range): BP systolic 106–127; BP diastolic 57–63
[2017-05-26 07:34] LABS: ANION GAP 13.3 mmol/L (8-16); CALCIUM 8.3 mg/dL (8.4-10.2); CREATININE, SERUM 1.05 mg/dL (0.57-1.11); POTASSIUM 3.3 mmol/L (3.5-5.1)
[2017-05-26] MEDS: BISOPROLOL FUMARATE 10 MG TAB PO SCH (09:00)
[2017-05-26] MEDS: DOCUSATE SODIUM 100 MG CAP PO SCH ×2 (10:00→18:29)
[2017-05-26] MEDS: ASPIRIN 81 MG ENTERIC COATED PO SCH (10:00)
[2017-05-26] MEDS: EZETIMIBE 10 MG TAB PO SCH (10:00)
[2017-05-26] MEDS: FUROSEMIDE INJ 10 MG/ML 4 ML VIAL IV SCH ×2 (10:00→18:29)
--- NOTE | 2017-05-26 11:16 | Progress Note ---
DATE: May 26, 2017 CARDIOLOGY PROGRESS NOTE SUBJECTIVE: Patient denies chest pain or shortness of breath. Continues to be deconditioned. OBJECTIVE VITAL SIGNS: Temperature 97.8 degrees, pulse 64, respiratory rate 18, blood pressure 106/60, oxygen saturation 97% on 1 L nasal cannula. GENERAL: Awake, alert, in no acute distress. Frail appearing. LUNGS: Clear to auscultation bilaterally. No wheezes or crackles. CARDIOVASCULAR: Normal rate, regular rhythm. No murmur. Normal S1 and S2. ABDOMEN: Soft. Nontender. EXTREMITIES: No edema. CARDIAC MEDICATIONS 1. Ezetimibe 10 mg p.o. daily. 2. Aspirin 81 mg daily. 3. Lasix 40 mg IV b.i.d. 4. Simvastatin 40 mg p.o. nightly. 5. Xarelto 15 mg p.o. daily. 6. Bisoprolol 5 mg p.o. daily. LABS: Sodium 143, potassium 3.3, chloride 103, CO2 30, BUN 27, creatinine 1.05. TELEMETRY: Atrial fibrillation with demand ventricular pacing. IMPRESSION 1. Redun-hc-wrfcbed severe systolic heart failure, ejection fraction 25% to 30%. 2. Acute kidney injury, improved. 3. Hyperkalemia, resolved. 4. Status implantable cardioverter-defibrillator. 5. Coronary artery disease, status post coronary artery bypass graft. 6. Hypertension. 7. Dyslipidemia. 8. History of ventricular tachycardia. 9. History of pulmonary embolism and deep venous thrombosis. 10. Atrial fibrillation/flutter. 11. Hypothyroidism. 12. Frailty and deconditioning. RECOMMENDATIONS: Continue current cardiac medications. Renal function continues to improve. Replete electrolytes. Left ventricular function is severely impaired. If she has not had recent ischemic evaluation, she will need this done at a later date. Continue Xarelto for CVA prophylaxis. If her renal function stabilizes, could consider resuming RYAN inhibitor. Physical therapy evaluation. Thank you for this consult. We will continue to follow. Job#: [id number]
[2017-05-26] MEDS: RIVAROXABAN 15 MG TABLET PO SCH (18:29)
[2017-05-26] MEDS: SIMVASTATIN 40 MG TAB PO SCH (20:24)
[2017-05-27] VITALS (8 sets, daily range): BP systolic 104–131; BP diastolic 56–79
[2017-05-27] MEDS: DOCUSATE SODIUM 100 MG CAP PO SCH ×2 (11:16→16:27)
[2017-05-27] MEDS: ASPIRIN 81 MG ENTERIC COATED PO SCH (11:16)
[2017-05-27] MEDS: FUROSEMIDE INJ 10 MG/ML 4 ML VIAL IV SCH ×2 (11:16→17:26)
[2017-05-27] MEDS: BISOPROLOL FUMARATE 10 MG TAB PO SCH (11:17)
[2017-05-27] MEDS: EZETIMIBE 10 MG TAB PO SCH (11:17)
--- NOTE | 2017-05-27 14:43 | Progress Note ---
DATE: May 27, 2017 CARDIOLOGY PROGRESS NOTE SUBJECTIVE: The patient denies chest pain. She continues to have dyspnea on exertion. OBJECTIVE VITALS: Temperature 96.5 degrees, pulse 70, respirations 18, blood pressure 114/59, and oxygen saturation 98% on 1 L nasal cannula. GENERAL: Awake, alert and in no acute distress. LUNGS: Clear to auscultation bilaterally. No wheezes or crackles. CARDIOVASCULAR: Normal rate. Regular rhythm. No murmur. Normal S1 and S2. ABDOMEN: Soft and nontender. EXTREMITIES: No edema. CARDIAC MEDICATIONS 1. Ezetimibe 10 mg p.o. daily. 2. Bisoprolol 5 mg p.o. daily. 3. Aspirin 81 mg p.o. daily. 4. Lasix 40 mg IV daily. 5. Simvastatin 40 mg p.o. at bedtime. 6. Xarelto 15 mg p.o. daily. LABS: None today. Telemetry is atrial fibrillation with demand ventricular pacing. IMPRESSION 1. Avbpg-ju-zehyzxk severe systolic heart failure with ejection fraction of 25% to 30%. 2. Acute kidney injury, improved. 3. Hyperkalemia, resolved. 4. Status post implantable cardioverter defibrillator. 5. Coronary artery disease: Status post coronary artery bypass graft. 6. Hypertension. 7. Dyslipidemia. 8. History of deep venous thrombosis. 9. History of pulmonary embolism and deep venous thrombosis. 10. Atrial fibrillation/flutter. 11. Hypothyroidism. 12. Frailty and deconditioning. RECOMMENDATIONS: Continue current cardiac medications. Monitor electrolytes and renal function. LVEF is severely impaired. If she has not had recent ischemic evaluation, she will need this done at a later date. Continue Xarelto for CVA prophylaxis. If renal function is stable, could consider resuming RYAN inhibitor. Patient is pending referral to LTAC for continued care. Thank you for this consult. We will continue to follow. Job#: [id number] RAMON
[2017-05-27 15:06] LABS: ANION GAP 14.8 mmol/L (8-16); CALCIUM 8.8 mg/dL (8.4-10.2); CREATININE, SERUM 1.2 mg/dL (0.57-1.11); POTASSIUM 3.8 mmol/L (3.5-5.1)
[2017-05-27] MEDS: RIVAROXABAN 15 MG TABLET PO SCH (16:27)
[2017-05-27] MEDS: SIMVASTATIN 40 MG TAB PO SCH (21:36)
[2017-05-27] MEDS: ZOLPIDEM TARTRATE 5 MG TAB PO PRN (21:36)
[2017-05-28] VITALS (8 sets, daily range): BP systolic 102–110; BP diastolic 58–68
[2017-05-28] MEDS: ASPIRIN 81 MG ENTERIC COATED PO SCH (09:46)
[2017-05-28] MEDS: FUROSEMIDE INJ 10 MG/ML 4 ML VIAL IV SCH (09:46)
[2017-05-28] MEDS: EZETIMIBE 10 MG TAB PO SCH (09:46)
[2017-05-28] MEDS: BISOPROLOL FUMARATE 10 MG TAB PO SCH (09:46)
[2017-05-28] MEDS: DOCUSATE SODIUM 100 MG CAP PO SCH ×2 (09:46→18:12)
--- NOTE | 2017-05-28 15:05 | Progress Note ---
DATE: May 28, 2017 CARDIOLOGY PROGRESS NOTE SUBJECTIVE: The patient denies chest pain or shortness of breath. She is awaiting approval for LTAC. OBJECTIVE VITALS: Temperature 96.1 degrees, pulse 62, respirations 16, blood pressure 103/68, and oxygen saturation 99% on 1 L nasal cannula. GENERAL: Elderly woman in no acute distress. Awake and alert. LUNGS: Clear to auscultation bilaterally. No wheezes or crackles. CARDIOVASCULAR: Normal rate. Regular rhythm. No murmur. Normal S1 and S2. ABDOMEN: Soft and nontender. EXTREMITIES: No edema. CARDIAC MEDICATIONS 1. Ezetimibe 10 mg p.o. daily. 2. Aspirin 81 mg p.o. daily. 3. Bisoprolol 5 mg p.o. daily. 4. Furosemide 40 mg IV b.i.d. 5. Simvastatin 40 mg p.o. at bedtime. 6. Xarelto 15 mg p.o. daily. LABS: Sodium 140, potassium 3.8, chloride 95, CO2 34, BUN 26, creatinine 1.2. TELEMETRY: Atrial fibrillation with demand ventricular pacing. IMPRESSION 1. Ahuti-um-yxmarmy severe systolic heart failure with ejection fraction of 25% to 30%. 2. Acute kidney injury. 3. Hyperkalemia, resolved. 4. History of ventricular tachycardia, status post implantable cardioverter defibrillator. 5. Coronary artery disease, status post coronary artery bypass graft. 6. Hypertension. 7. Dyslipidemia. 8. History of pulmonary embolism and deep venous thrombosis. 9. Atrial fibrillation/flutter. 10. Hypothyroidism. 11. Frailty and deconditioning. RECOMMENDATIONS: Continue current cardiac medications. Monitor electrolytes and renal function. LVEF is severely impaired. If she has not had recent ischemic evaluation, she will need this done at a later date. Continue Xarelto for CVA prophylaxis. Renal function had slightly increased yesterday. Repeat BMP today. If creatinine continues to rise, we will need to discontinue diuretics. Patient is pending referral to LTAC for continued care. Thank you for this consult. We will continue to follow. Job#: [id number]
[2017-05-28 15:40] LABS: ANION GAP 13.3 mmol/L (8-16); CALCIUM 8.5 mg/dL (8.4-10.2); CREATININE, SERUM 1.3 mg/dL (0.57-1.11); POTASSIUM 3.3 mmol/L (3.5-5.1)
[2017-05-28] MEDS ORDERED: POTASSIUM CHLORIDE 20 MEQ TAB CR PO ONE (17:50)
[2017-05-28] MEDS: RIVAROXABAN 15 MG TABLET PO SCH (18:12)
[2017-05-28] MEDS: SIMVASTATIN 40 MG TAB PO SCH (21:20)
[2017-05-28] MEDS: ZOLPIDEM TARTRATE 5 MG TAB PO PRN (21:20)
[2017-05-29 01:50] VITALS: BP 104/51
[2017-05-29 04:00] VITALS: BP 93/55
[2017-05-29 07:45] VITALS: BP 99/61
[2017-05-29] MEDS: EZETIMIBE 10 MG TAB PO SCH (08:23)
[2017-05-29] MEDS: BISOPROLOL FUMARATE 10 MG TAB PO SCH (08:23)
[2017-05-29] MEDS: ASPIRIN 81 MG ENTERIC COATED PO SCH (08:23)
[2017-05-29] MEDS: DOCUSATE SODIUM 100 MG CAP PO SCH ×2 (08:23→16:30)
[2017-05-29] MEDS ORDERED: ERTAPENEM 1GM/NS 100ML 100 ML IV SCH (11:15)
--- NOTE | 2017-05-29 11:41 | Progress Note ---
DATE: May 29, 2017 CARDIOLOGY PROGRESS NOTE SUBJECTIVE: The patient denies chest pain or shortness of breath. OBJECTIVE VITALS: Temperature 98.6 degrees, pulse 65, respirations 20, blood pressure 99/61, oxygen saturation 96% on 1 L nasal cannula. GENERAL: Elderly woman in no acute distress. Awake and alert. LUNGS: Clear to auscultation bilaterally. No wheezes or crackles. CARDIOVASCULAR: Normal rate. Regular rhythm. No murmur. Normal S1 and S2. ABDOMEN: Soft and nontender. EXTREMITIES: No edema. CARDIAC MEDICATIONS 1. Ezetimibe 10 mg p.o. daily. 2. Aspirin 81 mg p.o. daily. 3. Simvastatin 40 mg p.o. nightly. 4. Rivaroxaban 15 mg p.o. daily. 5. Bisoprolol 5 mg p.o. daily. LABS: None today. TELEMETRY: Atrial fibrillation with demand ventricular pacing. IMPRESSION 1. Pvczx-am-ygoaqvf severe systolic heart failure with ejection fraction of 25% to 30%. 2. Acute kidney injury. 3. Hyperkalemia, resolved. 4. History of ventricular tachycardia, status post automatic implantable cardioverter-defibrillator. 5. Coronary artery disease, status post coronary artery bypass graft. 6. Hypertension. 7. Dyslipidemia. 8. History of pulmonary embolism and deep venous thrombosis. 9. Atrial fibrillation/flutter. 10. Hypothyroidism. 11. Frailty and deconditioning. RECOMMENDATIONS: Continue current cardiac medications. Furosemide was stopped due to rising creatinine. Repeat basic metabolic panel today. If creatinine is improved, start p.o. diuretic to keep the patient net even. Continue Xarelto for CVA prophylaxis. If the patient has not had recent ischemic evaluation, she will need this done at a later date. Please have her follow up with us in the office in 2 weeks after discharge. She is pending acceptance to [facility]. Thank you for this consult. We will continue to follow. Job#: [id number]
[2017-05-29 11:50] VITALS: BP 110/74
[2017-05-29 11:52] LABS: ANION GAP 10.6 mmol/L (8-16); CALCIUM 8.7 mg/dL (8.4-10.2); CREATININE, SERUM 1.28 mg/dL (0.57-1.11); POTASSIUM 3.6 mmol/L (3.5-5.1)
[2017-05-29] MEDS ORDERED: SODIUM CHLORIDE 0.9% 250ML 250 ML ONE (12:17)
[2017-05-29 16:22] VITALS: BP 135/64
[2017-05-29] MEDS: RIVAROXABAN 15 MG TABLET PO SCH (16:30)
== END 2017-05-29 17:08 | DRG 291 ==
LOC: ER 11:42 → ERHOLD 13:55 → UNDOADMOB 13:55 → ERHOLD 19:29 → IMCU 19:29 → OBSVTOIN 05-29 11:37
DX: I13.0 Hypertensive heart and chronic kidney disease with heart failure and stage 1 through stage 4 chronic kidney disease, or unspecified chronic kidney disease (principal); I50.23 Acute on chronic systolic (congestive) heart failure; N17.9 Acute kidney failure, unspecified; I48.92 Unspecified atrial flutter; E87.5 Hyperkalemia; I25.10 Atherosclerotic heart disease of native coronary artery without angina pectoris; E03.9 Hypothyroidism, unspecified; N18.3 Chronic kidney disease, stage 3 (moderate); K59.00 Constipation, unspecified; E87.6 Hypokalemia; Z79.01 Long term (current) use of anticoagulants; Z86.711 Personal history of pulmonary embolism; Z95.5 Presence of coronary angioplasty implant and graft; Z95.1 Presence of aortocoronary bypass graft; Z95.810 Presence of automatic (implantable) cardiac defibrillator; Z86.718 Personal history of other venous thrombosis and embolism
CPT/HCPCS: 36415; 71045; 80048; 80053; 81001; 82550; 82553; 83605; 83735; 83880; 84132; 84484; 85025; 85610; 87086; 87186; 93005; 93306; 94660; 99285; G0378; J1940; J7050